=== PATIENT | male | born 1950 | race Caucasian/White ===

== ENCOUNTER 2018-07-25 11:07 | Emergency (ER) | payer OTHER ==
[2018-07-25] MEDS ORDERED: NA CHLORIDE 0.9% 1,000 ML ONE (11:46)
[2018-07-25 11:57] LABS: Absolute Monocytes 0.7 K/uL (0.1-1.3); Absolute Neutrophil 6.3 K/uL (1.8-8.0); Basophils % 0.4 % (0-1.3); Eosinophils % 1.2 % (0-4.4); Hematocrit 44.2 % (39.6-49.0); Lymphocytes % 11.8 % (15.3-44.8); MCH 35.3 pg (27.0-35.0); MCV 102.8 fL (80-100); MPV 7.1 fL (7.6-11.3); Monocytes % 8.9 % (3.3-12.3)
[2018-07-25] MEDS ORDERED: MORPHINE 4 MG/ML SYR ONE (12:07)
[2018-07-25] MEDS ORDERED: ONDANSETRON 4 MG/2 ML VIAL ONE (12:07)
[2018-07-25 12:18] LABS: Potassium 4.5 mmol/L (3.5-5.1)
--- NOTE | 2018-07-25 12:58 | RAD REPORT ---
EXAM DESCRIPTION: CT - Facial Bones W Con Mpr - 07/25/2018 12:41 pm CLINICAL HISTORY: Right-sided facial swelling and dental pain, history of diabetes COMPARISON: None. TECHNIQUE: Axial 2 millimeter thick images of the facial bones were obtained with sagittal and coron al reconstruction imaging. Imaging was performed during dynamic enhancement using nonionic IV contras t. All CT scans are performed using dose optimization technique as appropriate and may include automated exposure control or mA/KV adjustment according to patient size. FINDINGS: Intracranial portion of the examination is unremarkable. No globe or orbital content abnor mality. Paranasal sinuses and mastoid air cells are clear. No pharyngeal mucosal mass. Parapharyngeal fat is normal. No tongue base, tonsillar or soft palate abnormality seen. Epiglottis is normal with no vocal cord abnormality. Parotid and submandibular glands are normal. Edema is seen in the fatty tissues deep and superficial to the platysma in the right side at the late ral mandible and maxilla level. Punctate air densities are present in the soft tissues adjacent to th e posterior lateral margin right maxilla. Dental decay changes are evident. No destructive bone proce ss seen. No abscess or drainable fluid collections seen. IMPRESSION: Infectious/inflammatory stranding in the right lateral facial soft tissues. 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 No abscess or drainable fluid collection.
[2018-07-25] MEDS ORDERED: CLINDAMYCIN 600MG/D5W 600 MG/50 ML BAG IV ONE (13:19)
[2018-07-25] MEDS ORDERED: HYDROCODONE/APAP 5/325 MG TAB ONE (13:24)
--- NOTE | 2018-07-25 13:31 | EDPHYS ---
Physician Documentation [facility] Name: Paulo Phillips Age: 68 yrs Sex: Male : 1950 Arrival Date: 07/25/2018 Time: 11:11 Bed 13 Private MD: out of town, doctor ED Physician Queenie Rios HPI: 07/25 11:38 This 68 yrs old Male presents to ER via Ambulatory with complaints of Facial jmm Swelling. 11:38 The patient presents with swelling. The problem is located in the right jaw. Onset: The jmm symptoms/episode began/occurred today. Associated signs and symptoms: Pertinent positives: swelling, Pertinent negatives: fever. This is a 68 year old male with a histy of DM, HTN that presents to the ED with right sided facial swelling. Patient states chipping a tooth 1 week prior. States he awoke today with swelling to his jaw. . Historical: - Allergies: 11:18 No Known Allergies; la1 - PMHx: 11:18 Diabetes - NIDDM; Hypertension; la1 - Immunization history:: Adult Immunizations up to date. - Social history:: Smoking status: Patient/guardian denies using tobacco. - Ebola Screening: : No symptoms or risks identified at this time. ROS: 11:38 Constitutional: Negative for fever, chills, and weight loss. jmm 11:38 Cardiovascular: Negative for chest pain, palpitations, and edema, Respiratory: Negative for shortness of breath, cough, wheezing, and pleuritic chest pain, Abdomen/GI: Negative for abdominal pain, nausea, vomiting, diarrhea, and constipation. 11:38 ENT: Positive for Teeth pain 11:38 All other systems are negative. Exam: 11:38 Eyes: EOMI, no conjunctival erythema appreciated Chest/axilla: Normal chest wall jmm appearance and motion. Cardiovascular: Regular rate and rhythm. No edema appreciated Respiratory: Normal respirations, no respiratory distress appreciated Abdomen/GI: Non distended, soft Skin: General appearance color normal MS/ Extremity: Moves all extremities, no obvious deformities appreciated, no edema noted to the lower extremities Neuro: Awake and alert, normal gait 11:38 Constitutional: The patient appears in no acute distress, alert, awake. 11:38 Head/face: right sided jaw swelling, no submandibular tenderness appreciated. Vital Signs: 11:18 BP 128 / 93; Pulse 130; Resp 19; Temp 98.4(O); Pulse Ox 100% on R/A; Weight 102.06 kg; la1 Height 6 ft. 2 in. (187.96 cm); 11:25 Pulse 114; tw2 12:30 BP 130 / 92; Pulse 109; Resp 17; Pulse Ox 95% on R/A; tw2 13:10 BP 153 / 90; Pulse 97; Resp 17; Pulse Ox 97% ; tw2 13:42 BP 150 / 90; Pulse 99; Resp 17; Pulse Ox 95% on R/A; tw2 11:18 Body Mass Index 28.89 (102.06 kg, 187.96 cm) la1 MDM: 11:37 Patient medically screened. [facility] 11:38 Data reviewed: vital signs, nurses notes. Data interpreted:. Data interpreted: Pulse [facility] oximetry: on room air is 100 %. Interpretation: normal. 13:29 Data reviewed: lab test result(s), radiologic studies, CT scan. Counseling: I had a [facility] detailed discussion with the patient and/or guardian regarding: the historical points, exam findings, and any diagnostic results supporting the discharge/admit diagnosis, lab results, radiology results, the need for outpatient follow up, to return to the emergency department if symptoms worsen or persist or if there are any questions or concerns that arise at home. 07/25 11:37 Order name: CBC with Diff; Complete Time: 12:04 [facility] 07/25 11:37 Order name: BMP; Complete Time: 12:19 [facility] 07/25 11:37 Order name: Facial Bones W/ Con \T\ MPR CT; Complete Time: 13:02 [facility] 07/25 11:37 Order name: Saline Lock; Complete Time: 12:08 [facility] Administered Medications: 11:52 Drug: NS 0.9% 1000 ml Route: IV; Rate: 1 bolus; Site: left antecubital; tw2 13:12 Follow up: Response: No adverse reaction; IV Status: Completed infusion; IV Intake: tw2 1000ml 12:05 Drug: Zofran 4 mg Route: IVP; Site: left antecubital; tw2 13:12 Follow up: Response: No adverse reaction tw2 12:07 Drug: morphine 4 mg Route: IVP; Site: left antecubital; tw2 13:12 Follow up: Response: No adverse reaction; Pain is decreased tw2 13:15 Drug: Clindamycin 600 mg Route: IVPB; Infused Over: 30 mins; Site: left antecubital; tw2 13:45 Follow up: Response: No adverse reaction; IV Status: Completed infusion tw2 13:19 Drug: [place] 5 mg-325 mg 1 tabs Route: PO; tw2 13:42 Follow up: Response: No adverse reaction tw2 Disposition: 18:19 Co-signature as Attending Physician, Queenie Rios MD. ma2 Disposition: 07/25/18 13:30 Discharged to Home. Impression: Dental Pain. - Condition is Stable. - Discharge Instructions: Dental Abscess. - Prescriptions for Clindamycin HCl 300 mg Oral Capsule - take 1 capsule by ORAL route every 6 hours for 10 days; 40 capsule. Tylenol- Codeine #3 300-30 mg Oral Tablet - take 1 tablet by ORAL route every 6 hours As needed; 12 tablet. - Medication Reconciliation Form, Thank You Letter, Antibiotic Education, Prescription Opioid Use form. - Follow up: Shar Mejia DDS; When: As needed; Reason: Recheck today's complaints, Continuance of care, Re-evaluation by your physician. Signatures: Dispatcher [employer] EDMS Dominic Briseno PA PA jm Gregory Vazquez RN RN la1 Aniyah Langston RN RN tw2 Queenie Rios MD MD ma2 Corrections: (The following items were deleted from the chart) 13:49 13:30 07/25/2018 13:30 Discharged to Home. Impression: Dental Pain. Condition is tw2 Stable. Forms are Medication Reconciliation Form, Thank You Letter, Antibiotic Education, Prescription Opioid Use. Follow up: Shar Mejia; When: As needed; Reason: Recheck today's complaints, Continuance of care, Re-evaluation by your physician. emerald
--- NOTE | 2018-07-25 13:31 | ER ---
Nurse's Notes [facility] Name: Paulo Phillips Age: 68 yrs Sex: Male : 1950 Arrival Date: 07/25/2018 Time: 11:11 Bed 13 Private MD: out of town, doctor Diagnosis: Dental Pain Presentation: 07/25 11:16 Presenting complaint: Patient states: I have been having dental pain since Thursday or la1 Thursday, Facial swelling noted to right side. Transition of care: patient was not received from another setting of care. Onset of symptoms was July 25, 2018. Risk Assessment: Do you want to hurt yourself or someone else? Patient reports no desire to harm self or others. Initial Sepsis Screen: Does the patient meet any 2 criteria? HR > 90 bpm. Does the patient have a suspected source of infection? Yes: Other: dental. Care prior to arrival: None. 11:16 Method Of Arrival: Ambulatory la1 11:16 Acuity: ALICIA 3 la1 Historical: - Allergies: 11:18 No Known Allergies; la1 - PMHx: 11:18 Diabetes - NIDDM; Hypertension; la1 - Immunization history:: Adult Immunizations up to date. - Social history:: Smoking status: Patient/guardian denies using tobacco. - Ebola Screening: : No symptoms or risks identified at this time. Screenin:25 Abuse screen: Denies threats or abuse. Nutritional screening: No deficits noted. tw2 Tuberculosis screening: No symptoms or risk factors identified. Fall Risk None identified. Assessment: 11:28 General: Appears in no apparent distress. well groomed, Behavior is anxious. Pain: tw2 Complains of pain in mouth and right jaw. Neuro: Level of Consciousness is awake, alert, obeys commands, Oriented to person, place, time, situation. Cardiovascular: Denies chest pain, shortness of breath, Heart tones S1 S2 Capillary refill < 3 seconds Patient's skin is warm and dry. Respiratory: Airway is patent Respiratory effort is even, unlabored, Respiratory pattern is regular, symmetrical, Breath sounds are clear bilaterally. GI: No signs and/or symptoms were reported involving the gastrointestinal system. Abdomen is round non-distended, Bowel sounds present X 4 quads. : No signs and/or symptoms were reported regarding the genitourinary system. EENT: Reports pain in mouth and right jaw. Derm: No signs and/or symptoms reported regarding the dermatologic system. Musculoskeletal: Range of motion: intact in all extremities. 12:30 Reassessment: Patient appears in no apparent distress at this time. Patient and/or tw2 family updated on plan of care and expected duration. Pain level reassessed. Patient is alert, oriented x 3, equal unlabored respirations, skin warm/dry/pink. 13:11 Reassessment: Patient appears in no apparent distress at this time. Patient and/or tw2 family updated on plan of care and expected duration. Pain level reassessed. Patient is alert, oriented x 3, equal unlabored respirations, skin warm/dry/pink. Patient states feeling better. 13:43 Reassessment: Patient appears in no apparent distress at this time. Patient and/or tw2 family updated on plan of care and expected duration. Pain level reassessed. Patient is alert, oriented x 3, equal unlabored respirations, skin warm/dry/pink. Patient states feeling better. Vital Signs: 11:18 BP 128 / 93; Pulse 130; Resp 19; Temp 98.4(O); Pulse Ox 100% on R/A; Weight 102.06 kg; la1 Height 6 ft. 2 in. (187.96 cm); 11:25 Pulse 114; tw2 12:30 BP 130 / 92; Pulse 109; Resp 17; Pulse Ox 95% on R/A; tw2 13:10 BP 153 / 90; Pulse 97; Resp 17; Pulse Ox 97% ; tw2 13:42 BP 150 / 90; Pulse 99; Resp 17; Pulse Ox 95% on R/A; tw2 11:18 Body Mass Index 28.89 (102.06 kg, 187.96 cm) la1 ED Course: 11:11 Patient arrived in ED. mr 11:11 out of town, doctor is Private Physician. mr 11:17 Triage completed. la1 11:18 Dominic Briseno PA is PHCP. [facility] 11:18 Queenie Rios MD is Attending Physician. jmm 11:18 Arm band placed on left wrist. la1 11:25 Aniyah Langston, REYNA is Primary Nurse. tw2 11:25 Bed in low position. Call light in reach. Adult w/ patient. Pulse ox on. NIBP on. tw2 11:45 Inserted saline lock: 20 gauge in left antecubital area, using aseptic technique. Blood tw2 collected. 12:41 Facial Bones W/ Con \T\ MPR CT In Process Unspecified. EDMS 13:29 Shar Mejia DDS is Referral Physician. emerald 13:36 Awaiting: COMPLETION OF IV ABX PRIOR TO DISCHARGE. tw2 13:49 No provider procedures requiring assistance completed. IV discontinued, intact, tw2 bleeding controlled, No redness/swelling at site. Pressure dressing applied. Administered Medications: 11:52 Drug: NS 0.9% 1000 ml Route: IV; Rate: 1 bolus; Site: left antecubital; tw2 13:12 Follow up: Response: No adverse reaction; IV Status: Completed infusion; IV Intake: tw2 1000ml 12:05 Drug: Zofran 4 mg Route: IVP; Site: left antecubital; tw2 13:12 Follow up: Response: No adverse reaction tw2 12:07 Drug: morphine 4 mg Route: IVP; Site: left antecubital; tw2 13:12 Follow up: Response: No adverse reaction; Pain is decreased tw2 13:15 Drug: Clindamycin 600 mg Route: IVPB; Infused Over: 30 mins; Site: left antecubital; tw2 13:45 Follow up: Response: No adverse reaction; IV Status: Completed infusion tw2 13:19 Drug: [place] 5 mg-325 mg 1 tabs Route: PO; tw2 13:42 Follow up: Response: No adverse reaction tw2 Intake: 13:12 IV: 1000ml; Total: 1000ml. tw2 Outcome: 13:30 Discharge ordered by . crow 13:49 Discharged to home ambulatory, with significant other. tw2 13:49 Condition: stable 13:49 Discharge instructions given to patient, significant other, Instructed on discharge instructions, follow up and referral plans. no drinking with medication, no driving heavy equipment, medication usage, Demonstrated understanding of instructions, follow-up care, medications, Prescriptions given X 2. 13:49 Patient left the ED. tw2 Signatures: Dispatcher [employer] EDMS Dominic Briseno PA PA jmm Rivera, Maria mr Attema, Lee, RN RN la1 Aniyah Langston RN RN tw2
== END 2018-07-25 13:49 | disposition home or self-care (01) ==
LOC: ER 11:07
DX: K08.89 Other specified disorders of teeth and supporting structures (principal); I10 Essential (primary) hypertension
CPT/HCPCS: 36415; 70487; 76377; 80048; 85025; 96361; 96365; 96375; 99284; J2405; J7030; Q9967